=== PATIENT | male | born 1945 | race Caucasian/White ===

== ENCOUNTER 2017-02-17 11:36 | Outpatient (CLI) | END 2017-02-17 11:37 | LOC: AMBL 11:36 | PROVIDERS: ATTEND Internal Medicine | DX: R68.89 Other general symptoms and signs (principal); R53.1 Weakness; E66.9 Obesity, unspecified ==

== ENCOUNTER 2017-05-10 11:00 | Outpatient (CLI) | END 2017-05-10 11:01 | disposition home or self-care (01) | LOC: NONPT 11:00 | PROVIDERS: ATTEND Family Medicine | DX: R05 Cough (principal) | CPT/HCPCS: 87070 ==